=== PATIENT | male | born 1985 | race Caucasian/White ===

== ENCOUNTER 2023-05-05 15:51 | Emergency (ER) | payer BC ==
[2023-05-05] MEDS ORDERED: methylPREDNISolone Sodium Succinate 40 MG/1 ML SDV IM ONE (16:34)
[2023-05-05] MEDS: HYDROmorphone 1 MG/ML Syringe IM ONE ×2 (17:08→17:28)
== END 2023-05-05 17:15 | disposition home or self-care (01) ==
LOC: JD.ED 15:51
DX: M54.41 Lumbago with sciatica, right side (principal)
CPT/HCPCS: 96372; 99283; J2920; J1170

== ENCOUNTER 2024-01-06 12:29 | Emergency (ER) | payer BC ==
[2024-01-06] MEDS: Pantoprazole 40 MG Tab.CR PO ONE (13:18)
[2024-01-06] MEDS: Ketorolac 30 MG/ML SDV IM ONE (13:18)
[2024-01-06] MEDS: methylPREDNISolone Sodium Succinate 125 MG/2 ML SDV IM ONE (13:18)
[2024-01-06] MEDS: Orphenadrine 60 MG/2 ML Inj IM ONE (13:18)
== END 2024-01-06 13:40 | disposition home or self-care (01) ==
LOC: JD.ED 12:29
DX: M53.3 Sacrococcygeal disorders, not elsewhere classified (principal)
CPT/HCPCS: 96372; 99283; A9270; J1885; J2360; J2930